=== PATIENT | male | born 2000 | race Caucasian/White ===

== ENCOUNTER 2020-01-13 02:34 | Emergency (ER) | payer SELFPAY ==
[2020-01-13 02:39] VITALS: BP 126/90; PULSE 81; RESP 18; TEMP 36.4; O2SAT 100; BMI 22.9
--- NOTE | 2020-01-13 02:42 | ED_ITS ---
HPI - Extremity Injury (Upper) General: Chief Complaint: Extremity Injury, Upper Stated Complaint: right hand injury Time Seen by Provider: 01/13/20 02:36 Source: patient and EMS Mode of arrival: ambulatory History of Present Illness: HPI narrative: 19-year-old male states that he is working on a golf cart yesterday and sustained an abrasion to his right hand. He states that he has had increasing pain with redness and was not concerned of infection. He states it mainly hurts when he moves it and that if he just at rest it does not hurt. Denies any fevers. Associated symptoms: Denies neck pain Review of Systems Const: Denies: fever, chills, body aches or change in appetite Eyes: Denies: blurry vision or eye discomfort ENMT: Denies: throat pain or dental pain Card: Denies: chest pain Resp: Denies: shortness of breath GI: Denies: abdominal pain, nausea, vomiting or diarrhea : Denies: painful urination Musc: Denies: neck pain or back pain Skin/Breast: Reports: redness Neuro: Denies: headache Psych: Denies: depression Augustin/Lymph: Denies: easy bruising All/Imm: Denies: hives PFSH ED PFSH: Social History Smoking and tobacco status: current every day smoker Physical Exam Const: COMMON NORMALS: no apparent distress, oriented x3 and healthy appearing HENMT: COMMON NORMALS: normocephalic and head/scalp atraumatic HEAD & SCALP: normocephalic and atraumatic Eye: COMMON NORMALS: PERRL and EOMs intact bilaterally PUPIL: Yes PERRL Neck/C-Spine: COMMON NORMALS: full ROM and supple Chest: COMMONS NORMALS: inspection of chest normal and palpation of chest normal Resp: COMMON NORMALS: normal respiratory effort, no retractions, no use of accessory muscles and clear to auscultation bilaterally AUSCULTATION: clear to auscultation bilaterally Cardio: COMMON NORMALS: regular rate, regular rhythm and no murmurs RATE: regular rate RHYTHM: regular rhythm GI: COMMON NORMALS: normal to inspection, nondistended, normoactive bowel sounds, soft to palpation, non-tender and no masses PALPATION: Yes soft Extremity: COMMON NORMALS: normal to inspection and full ROM NARRATIVE EXTREMITY EXAM: Lesion to right knuckle superficial nature with mild cellulitis no abscess formation Neuro: COMMON NORMALS: oriented x3, moves all extremities and no focal motor deficits Psych: COMMON NORMALS: mental status grossly normal, thought process normal and cooperative THOUGHT PROCESS: normal thought process Skin: COMMON NORMALS: no rashes or lesions noted and no wounds GENERAL SKIN EXAM: no rashes or lesions noted Course Vital Signs: Vital signs: Vital Signs Temperature 97.5 F L 01/13/20 02:39 Pulse Rate 81 01/13/20 02:39 Respiratory Rate 18 01/13/20 02:39 Blood Pressure 126/90 01/13/20 02:39 Pulse Oximetry 100 01/13/20 02:39 MDM - Extremity Injury (Upper) MDM Narrative: Medical decision making narrative: Patient presents here with an abrasion to his right hand from working on a go-cart. He has a very mild cellulitis at the wound. No signs of abscess. Patient stable for discharge will place on Bactrim along with Discharge Plan Discharge Patient Disposition: Home, Self-Care Clinical Impression: Abrasion Cellulitis Qualifiers: Site of cellulitis: extremity Site of cellulitis of extremity: upper extremity Laterality: right Qualified Code(s): L03.113 - Cellulitis of right upper limb Prescriptions: New Bactrim DS 800-160 mg tablet 1 tab PO BID 10 Days Qty: 20 RF: 0 EC-Naprosyn 500 mg tablet,delayed release (DR/EC) 500 mg PO BID PRN (Reason: pain) Qty: 20 RF: 0 Discharge Orders: Discharge Order (Routine); Ordered 01/13/20 Ordered By: Genesis Jeffers Discharge Diet: Advance as tolerated Discharge Activity: Resume usual activity Patient Instructions: Cellulitis (ED) Discharge Date/Time: 01/13/20 02:48 Coding Level of Care Code ED Public Information Officer for Romy Packer
[2020-01-13 02:44] VITALS: PULSE 84
[2020-01-13 02:47] VITALS: BP 126/90; PULSE 80; RESP 18; TEMP 36.4; O2SAT 100
== END 2020-01-13 02:48 | disposition home or self-care (01) ==
PROVIDERS: Emergency Provider Emergency Medicine
DX: L03.113 Cellulitis of right upper limb (principal); F17.210 Nicotine dependence, cigarettes, uncomplicated
CPT/HCPCS: 12345; 99281; 99282

== ENCOUNTER 2020-02-13 14:49 | Emergency (ER) | payer SELFPAY ==
[2020-02-13 14:51] VITALS: BP 122/72; PULSE 104; RESP 16; TEMP 36.6; O2SAT 99; BMI 23.7
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
[2020-02-13 16:48] VITALS: BP 111/71; PULSE 60; RESP 18; TEMP 36.7; O2SAT 95
== END 2020-02-13 16:50 | disposition home or self-care (01) ==
PROVIDERS: Emergency Provider Physician Assistant
DX: M25.562 Pain in left knee (principal); V29.9XXA Motorcycle rider (driver) (passenger) injured in unspecified traffic accident, initial encounter; F17.210 Nicotine dependence, cigarettes, uncomplicated
CPT/HCPCS: 12345; 73562; 73590; 99281; 99283

== ENCOUNTER 2020-04-02 05:10 | Emergency (ER) | payer SELFPAY ==
[2020-04-02 05:13] VITALS: BP 117/77; PULSE 99; RESP 18; O2SAT 99; BMI 23.9
[2020-04-02 05:19] VITALS: BP 117/77; PULSE 105; PULSE 96; RESP 19; O2SAT 98
--- NOTE | 2020-04-02 05:21 | XR_ITS ---
WS: [id number] RIGHT FOREARM 2 VIEWS HISTORY: injury COMPARISON: None available. Plate and screw fixation proximal ulna stabilizing a fracture with partial healing. No prior studies to evaluate for progression or change in fracture. There are small ovoid densities measuring 6 mm in the anterior joint space of the elbow. Small joint effusion at the elbow. Soft tissue swelling around the forearm. XR/XR forearm RT 2V [id number] IMPRESSION: 1. Prior plate and screw fixation proximal ulnar fracture. No prior radiograph s for comparison to evaluate for change. There is partial healing. 2. Diffuse soft tissue edema around the forearm. 3. Small avulsion fractures or loose bodies over the anterior elbow joint. The se may be loose bodies within the joint. 4. Small joint effusion.
--- NOTE | 2020-04-02 05:21 | PC.NURSE ---
Sutures removed by Pt. tolerated well.
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
--- NOTE | 2020-04-02 05:43 | PC.NURSE ---
x-ray done at bedside
--- NOTE | 2020-04-02 06:46 | PC.NURSE ---
Pt. declines sling. Reports that he has one at home.
== END 2020-04-02 06:47 | disposition home or self-care (01) ==
PROVIDERS: Emergency Provider Emergency Medicine
DX: L03.119 Cellulitis of unspecified part of limb (principal); F17.210 Nicotine dependence, cigarettes, uncomplicated
CPT/HCPCS: 12345; 29125; 73090; 99281; 99283

== ENCOUNTER 2020-07-10 02:37 | Emergency (ER) | payer SELFPAY ==
[2020-07-10 02:44] VITALS: BP 120/63; PULSE 117; RESP 18; TEMP 36.6; O2SAT 99; BMI 22.9
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
[2020-07-10 02:51] VITALS: BP 125/76; PULSE 89; RESP 16; O2SAT 99
[2020-07-10] MEDS: piperacillin-tazobactam 4.5 GM in sodium chloride 0.9% (plus) 50 ML IV (03:14)
[2020-07-10] MEDS: sodium chloride 0.9% 1,000 ML 999 ML IV (03:14)
[2020-07-10 03:26] LABS: Basophils % 0.3 %; Eosinophils % 0.1 %; Hematocrit 43.1 % (42.0-52.0); Hemoglobin 14.5 g/dL (11.7-16.6); Lymphocytes # 1.7 10^3/uL (1.5-6.5); Lymphocytes % 10.8 %; Mean Corpuscular HGB Conc 33.6 g/dL (30.0-36.0); Mean Corpuscular Hemoglobin 30.3 pg (28.0-34.0); Mean Corpuscular Volume 90.2 fL (80-94); Mean Platelet Volume 9.7 fL (7.4-10.4); Monocytes # 1.3 10^3/uL (0.2-0.9); Monocytes % 7.9 %; Neutrophils # 12.86 10^3/uL (1.8-8.0); Neutrophils % 80.5 %; Nucleated Red Blood Cells % 0 %; Platelet Count 229 10^3/cmm (130-400); Red Blood Count 4.78 10^6/uL (4.1-5.3); Red Cell Distribution Width 12.6 % (12.1-15.1)
[2020-07-10 03:41] LABS: Lactic Sepsis W/Reflex 1.4 mmol/L (0.5-2.2)
[2020-07-10 03:42] LABS: Anion Gap 13.4 (5-19); Blood Urea Nitrogen 11 mg/dL (6-20); Carbon Dioxide 24 mmol/L (22-29); Chloride 101 mmol/L (98-107); Creatinine Clr Calc Pharmacy 134.8704; Glomerular Filtration Rate 107.6 mL/min (90-130); Glucose 143 mg/dL (65-115); Osmolality Calculated 282 mOsm/kg (285-295); Potassium 3.4 mmol/L (3.5-5.1); Sodium 135 mmol/L (136-145)
[2020-07-10] MEDS: amoxicillin-clav 875-125 mg Tablet 1 TAB PO (03:59)
[2020-07-10] MEDS: HYDROcodone-acetaminophen 7.5-325 mg Tablet 1 TAB PO (03:59)
[2020-07-10] MEDS: doxycycline 100 mg Tablet PO (03:59)
[2020-07-10 04:06] VITALS: BP 125/77; PULSE 74; RESP 14; O2SAT 99
== END 2020-07-10 04:08 | disposition home or self-care (01) ==
PROVIDERS: Emergency Provider Nurse Practitioner Family
DX: L03.113 Cellulitis of right upper limb (principal); F17.210 Nicotine dependence, cigarettes, uncomplicated
CPT/HCPCS: 12345; 73130; 80048; 83605; 85025; 87040; 96365; 99283; J2543; J7030

== ENCOUNTER 2021-03-14 15:51 | Emergency (ER) | payer SELFPAY ==
[2021-03-14 16:00] VITALS: BP 124/79; PULSE 71; RESP 18; TEMP 37.1; O2SAT 99; BMI 24.3
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
--- NOTE | 2021-03-14 16:20 | ED_ITS ---
HPI - Trauma General: Chief Complaint: Trauma Stated Complaint: R.Hand Injury/Punched Window Time Seen by Provider: 03/14/21 16:20 History of Present Illness: HPI narrative: Patient is a 21-year-old male comes to the ED with a right hand injury. Patient has a history of metacarpal fracture and right hand fourth and fifth digit that were repaired using plates. Patient says 2 days ago he punched a window. After the injury patient said he had an obvious break just below where his plates are not as right hand. He said there was a bulge in the back of his hand and he pulled on his fourth and fifth digit and pushed down and popped a bone back in place. He now has significant swelling to his right hand. He reports some mild tenderness. Associated symptoms: Denies abdominal pain, back pain, chest pain, chills, fever(s), headache(s), nausea or vomiting Review of Systems Const: Denies: fever(s), chills or fatigue Eyes: Denies: change in vision or eye discomfort ENMT: Denies: throat pain, odynophagia, nasal discharge or nasal congestion Card: Denies: chest pain, palpitations, edema, swelling of feet/ankles, dyspnea on exertion or orthopnea Resp: Denies: dyspnea, productive cough or non-productive cough GI: Denies: abdominal pain, nausea, vomiting, diarrhea, constipation or hematochezia : Denies: flank pain, difficulty urinating, dysuria or hematuria Musc: Reports: extremity pain (right hand ) and extremity swelling (right hand); Denies: neck pain or back pain Skin/Breast: Denies: rash or new lesions Neuro: Denies: headache(s), numbness in extremities or weakness in extremities PFS ED PFSH: Social History Smoking and tobacco status: current every day smoker Physical Exam Const: COMMON NORMALS: no acute distress, patient oriented x3 and alert GENERAL APPEARANCE: cooperative and comfortable HENMT: COMMON NORMALS: normocephalic HEAD & SCALP: normocephalic MOUTH: Normal oral and palatal mucosa present THROAT: posterior oropharynx normal and uvula midline Neck/C-Spine: COMMON NORMALS: supple GENERAL: Yes normal visual inspection Resp: COMMON NORMALS: normal respiratory effort, No retractions, No use of accessory muscles and clear to auscultation bilaterally AUSCULTATION: clear to auscultation bilaterally Cardio: COMMON NORMALS: regular rate, regular rhythm, S1 normal heart sound present, S2 normal heart sound present, No gallops present (Cardio), No clicks present (Cardio), No murmurs present (Cardio) and Peripheral pulses 2+ throughout RATE: regular rate RHYTHM: regular rhythm HEART SOUNDS: S1 normal heart sound present and S2 normal heart sound present PERIPHERAL PULSES: Peripheral pulses 2+ throughout GI: COMMON NORMALS: Normal to inspection, nondistended, normoactive bowel sounds present, Soft to palpation, non-tender and no masses PALPATION: Yes Soft to palpation : COMMON NORMALS: Yes no CVA tenderness BLADDER/KIDNEY EXAM: Yes no CVA tenderness Back/Pelvis: COMMON NORMALS: no CVA tenderness Extremity: RIGHT UPPER EXTREMITY: Yes hand & digits Right hand and digits: Yes inspection (Significant swelling in right hand.), Yes palpation (Mild tenderness over fourth and fifth metacarpals), Yes ROM exam (Limited due to pain) and Yes neurovascular exam (Intact) Neuro: COMMON NORMALS: patient oriented x3 and moves all extremities SENSORIUM/ORIENTATION: Yes alert Skin: GENERAL SKIN EXAM: dry skin Course Vital Signs: Vital signs: Vital Signs Temperature 98.7 F 03/14/21 16:00 Pulse Rate 71 03/14/21 17:59 Respiratory Rate 16 03/14/21 17:59 Blood Pressure 122/71 03/14/21 17:59 Pulse Oximetry 99 03/14/21 17:59 MDM - Trauma MDM Narrative: Medical decision making narrative: Patient is a 21-year-old male comes to the ED with right hand injury 2 days ago. Patient has a past medical history of a boxer fracture on right fourth and fifth digits and currently has plates still in place from previous fracture. Patient says he punched a window and felt pain and said he had an obvious displaced fracture in right hand. He says he then reduced the fracture himself. Here in the ED patient has significant right hand swelling and some tenderness over the fourth and fifth digit metacarpal region. Limited range of motion due to pain. Neurovascular tact. Right hand x-ray did not show any obvious acute fractures and hardware appeared in place. Patient's exam findings and history are suggestive of a boxer's fracture. Patient was put in an ulnar gutter splint and I placed order with case management for patient to be referred to orthopedic. Patient discharged home and told the case loader operator will contact you over the next several days to set up appoint with orthopedic doctor. Return to ED precautions given. Patient understood agree with plan. Imaging Data^: Xray Ortho: Attestation: I personally reviewed and interpreted this imaging study as foll ows: My impression: [address] [id number] ReportSigned Patient: Familia Ron #: [id number]: [id number]#:[id number]/Sex: 21 / MADM Date: 03/14/21Loc: ERRoom/Bed:Attending Dr: Ordering Provider/Ordering MD: Ryan Phipps Date of Service: 03/14/21 Procedure(s): XR hand RT min 3V* [id number] Accession Number(s): [id number] Report Number: [id number] PROCEDURE INFORMATION: Exam: XR Right Hand Exam date and time: 03/14/2021 4:07 PM Age: 21 years old Clinical indication: Injury or trauma; Blunt trauma (contusions or hematomas); Right; Injury details: Punched a window x 2 days; Prior surgery; Surgery type: RT hand; Additional info: Punched window TECHNIQUE: Imaging protocol: XR Right hand. Views: 3 or more views. COMPARISON: No relevant prior studies available. FINDINGS: Bones/joints: Patient has had previous fracture repairs of the 4th and 5th metacarpals. Alignment is anatomic. No acute fracture. No dislocation. Normal bone mineralization. No joint effusion. Joint spaces are maintained. Soft tissues: Marked soft tissue swelling dorsal to the metacarpals. No radiopaque foreign body. XR/XR hand RT min 3V* [id number] IMPRESSION: 1. No acute fracture. Followup imaging recommended in 7-14 days if clinical concern for fracture persists. 2. Marked soft tissue swelling dorsal to the metacarpals. 3. Incidental/nonacute findings are listed in the report. Dictated By:Liss Kwon MDSigned By:Liss Kwon MDSigned Date/Time:03/14/21 1717DD/ 1716 Discharge Plan Discharge Patient Disposition: Home Clinical Impression: Boxer's fracture Qualifiers: Encounter type: initial encounter Fracture type: closed Qualified Code(s): S62.339A - Displaced fracture of neck of unspecified metacarpal bone, initial encounter for closed fracture Condition: Stable Prescriptions: No Action amoxicillin-pot clavulanate 875-125 mg tablet 1 tab PO BID Qty: 14 RF: 0 hydrocodone-acetaminophen 5-325 mg tablet 1 tab PO Q6H PRN (Reason: pain) Qty: 7 RF: 0 Discharge Orders: Discharge ED (Routine); Ordered 03/14/21 Ordered By: Ryan Phipps Discharge Diet: Regular Discharge Activity: Limit activity as instructed Patient Instructions: Boxer Fracture (ED) Activity Restrictions/Additional Instructions: Follow-up with medical provider as directed. Case management should be co ntacting you in the next several days to set up an appointment with orthopedic doctor. Wear your ulnar gutter splint and limit activity with right hand. Take [id number] Tylenol or ibuprofen for pain. Return to the ER or your medical provider if condition worsens. Please read and understand discharge instructions. Thank you for choosing [facility] for your healthcare needs today. Please realize this is an emergency room and that we are providing you with a medical screening exam and this may not be complete and all inclusive of all the testing and or work up that you may need to determine your ailment or severity of your illness. It is very important that you follow up as instructed or that you return to the Emergency Department should you have concerns or if your condition changes or worsens in any way. Coding Level of Care Code ED Agricultural Research Technician for Romy Packer Exam Comprehensive
[2021-03-14 17:59] VITALS: BP 122/71; PULSE 71; RESP 16; O2SAT 99
--- NOTE | 2021-04-15 14:25 | DCPLANNER ---
Patient will need a followup appointment with ortho. manager proposal spoke with Olivia from the ortho clinic. Patients information will be printed and reviewed. Clinic will call patient with appointment information.
--- NOTE | 2021-04-21 11:49 | DCPLANNER ---
immigration manager called the ortho clinic to confirm if a follow up appointment had been scheduled for patient. immigration manager spoke with Sera, case investigator was told that after patients information was reviewed, that Dr. Allison will not see patient at this time due to patient not having a fracture. Patient will need to follow up with primary care.
== END 2021-03-14 18:00 | disposition home or self-care (01) ==
PROVIDERS: Emergency Provider Physician Assistant
DX: S62.339A Displaced fracture of neck of unspecified metacarpal bone, initial encounter for closed fracture (principal); F17.210 Nicotine dependence, cigarettes, uncomplicated; W22.8XXA Striking against or struck by other objects, initial encounter
CPT/HCPCS: 29125; 73130; 99283

== ENCOUNTER 2021-03-26 03:10 | Emergency (ER) | payer SELFPAY ==
[2021-03-26 03:23] VITALS: BP 121/74; PULSE 116; RESP 18; TEMP 36.2; O2SAT 98; BMI 25.8
[2021-03-26] MEDS: sulfamethoxazole-trimeth DS 160-800 mg Tablet 2 TAB PO (03:49)
[2021-03-26] MEDS: dexamethasone 4 mg Tablet 10 MG PO (03:49)
--- NOTE | 2021-03-26 03:53 | PC.NURSE ---
Patient sent home with 2 tablets oxycodone/APAP 5mg/325mg per provider order.
[2021-03-26 03:59] VITALS: BP 119/74; PULSE 104; RESP 14; TEMP 36.2; O2SAT 98
--- NOTE | 2021-03-26 04:50 | ED_ITS ---
HPI - Skin/Abscess/Foreign Bdy General: Chief complaint: Skin/Abscess/Foreign Body Stated complaint: spider bite Time Seen by Provider: 03/26/21 03:27 History of Present Illness: HPI narrative: 21-year-old male with a spider bite to his forearm. Its been there a couple of days. He notes that the area of redness and discomfort has grown. Yesterday, he worked on his mother's car and had an increase in pain at that point. No fever, no vomiting. No real drainage MD complaint: insect bite/sting Onset (ago): day(s) Tetanus up to date: yes Location: RUE Severity: moderate Quality: burning and stabbing Pain Consistency: constant Associated symptoms: Reports vomiting; Deny chills, cough, fever(s) or short of breath Review of Systems 2 Const: Denies: fever(s) or chills Card: Denies: chest pain Resp: Denies: dyspnea GI: Reports: vomiting Skin/Breast: Reports: rash PFSH ED PFSH: Social History Smoking and tobacco status: current every day smoker Physical Exam Const: COMMON NORMALS: no acute distress and alert HENMT: COMMON NORMALS: normocephalic HEAD & SCALP: normocephalic Chest: COMMONS NORMALS: normal inspection of the chest Resp: COMMON NORMALS: normal respiratory effort, No use of accessory muscles and clear to auscultation bilaterally EFFORT & INSPECTION: Yes able to speak in complete sentences AUSCULTATION: clear to auscultation bilaterally Cardio: COMMON NORMALS: regular rate and regular rhythm; negative for No murmurs present (Cardio) RATE: regular rate RHYTHM: regular rhythm GI: COMMON NORMALS: Normal to inspection, nondistended, normoactive bowel sounds present and Soft to palpation PALPATION: Yes Soft to palpation Neuro: SENSORIUM/ORIENTATION: Yes alert Skin: NARRATIVE SKIN EXAM: Exam the right upper extremity reveals a 5 cm area of induration and erythema. There is no fluctuance there is some centralized necrosis that is small. It is warm to the touch and tender no streaking no signs of septic tenosynovitis. Course Vital Signs: Vital signs: Vital Signs Temperature 97.2 F L 03/26/21 03:59 Pulse Rate 104 H 03/26/21 03:59 Respiratory Rate 14 03/26/21 03:59 Blood Pressure 119/74 03/26/21 03:59 Pulse Oximetry 98 03/26/21 03:59 MDM - Skin/Abscess/Foreign Bdy MDM Narrative: Medical decision making narrative: No I&D needed at this time. Oral antibiotics. Return if worsening. Discharge Plan Discharge Patient Disposition: Home Clinical Impression: Abscess of skin or subcutaneous tissue Qualifiers: Site of cutaneous abscess: extremity Site of cutaneous abscess of extremity: upper extremity Laterality: right Qualified Code(s): L02.413 - Cutaneous abscess of right upper limb Condition: Stable Prescriptions: New Bactrim DS 800-160 mg tablet 2 tab PO BID 10 Days Qty: 40 RF: 0 ketorolac 10 mg tablet 10 mg PO TID PRN (Reason: pain) Qty: 10 RF: 0 No Action amoxicillin-pot clavulanate 875-125 mg tablet 1 tab PO BID Qty: 14 RF: 0 hydrocodone-acetaminophen 5-325 mg tablet 1 tab PO Q6H PRN (Reason: pain) Qty: 7 RF: 0 Discharge Orders: Discharge ED (Routine); Ordered 03/26/21 Ordered By: Nickolas Orellana Discharge Diet: Usual diet Discharge Activity: Limit activity as instructed Patient Instructions: Abscess (ED) Activity Restrictions/Additional Instructions: Return for intense pain with flexion or extension of your fifth finger, streaking redness despite 2-3 doses of antibiotics, fever greater than 100 despite 2-3 doses of antibiotics, worsening pain despite treatment, other concerning symptoms. Coding Level of Care Code ED Power Line Installer for Romy Packer
== END 2021-03-26 04:00 | disposition home or self-care (01) ==
PROVIDERS: Emergency Provider Emergency Medicine
DX: L02.413 Cutaneous abscess of right upper limb (principal); F17.210 Nicotine dependence, cigarettes, uncomplicated
CPT/HCPCS: 99283; J8540

== ENCOUNTER 2021-11-01 21:36 | Emergency (ER) | payer SELFPAY ==
[2021-11-01 21:49] VITALS: BP 140/78; PULSE 105; RESP 16; TEMP 37.2; O2SAT 97
--- NOTE | 2021-11-01 22:12 | W.ED.WOUNDLC ---
HPI - Wound/Laceration General: Chief Complaint: Wound/Laceration Stated Complaint: RT leg injury Time Seen by Provider: 11/01/21 21:57 History of Present Illness: 21-year-old male patient comes in today with injury to the right lower leg. Patient was using a hatchet and excellently hit his toe and lower leg. Patient had significant bleeding to the right lower leg. Patient was holding pressure on coming to the ER with significant amount of bleeding noted. Pressure dressing was applied by nurse. Patient's tetanus shot is up-to-date. Patient appears well and is able to bear weight without any difficulty. Review of Systems Skin/Breast: Reports: new lesions (Laceration right lower leg, bleeding) [facility] ED PFSH: Social History Smoking and tobacco status: current every day smoker Physical Exam Const: COMMON NORMALS: alert HENMT: COMMON NORMALS: atraumatic HEAD & SCALP: atraumatic Neck/C-Spine: COMMON NORMALS: full ROM Resp: COMMON NORMALS: normal respiratory effort and clear to auscultation bilaterally AUSCULTATION: clear to auscultation bilaterally Cardio: COMMON NORMALS: regular rate and regular rhythm RATE: regular rate RHYTHM: regular rhythm Extremity: RIGHT LOWER EXTREMITY: Yes lower leg (8mm laceration ) Right lower leg: Yes inspection, Yes palpation and Yes neurovascular exam Neuro: SENSORIUM/ORIENTATION: Yes alert Skin: TRAUMA: laceration (Right lower leg, 8 mm) linear Procedures Laceration Laceration 1: Site: lower extremity (right lower leg) Side (If applicable): right Size (cm): 0.8 Description: linear Depth: simple, single layer Amount of anesthesia used (mL): 1 Pre-repair: wound explored and irrigated extensively Skin layer closed with: nylon Size (cm): 4-0 Number of sutures: 1 Technique: simple, interrupted Course Vital Signs: Vital signs: Vital Signs Temperature 98.9 F 11/01/21 21:49 Pulse Rate 105 H 11/01/21 21:49 Respiratory Rate 16 11/01/21 21:49 Blood Pressure 140/78 11/01/21 21:49 Pulse Oximetry 97 11/01/21 21:49 MDM - Wound/Laceration Medical Decision Making 21-year-old male patient comes in today with injury to the right lower leg. Patient hit it with the edge of his hatchet causing it to be bleeding. On exam there was only 8 mm laceration but has had considerable bleeding prior to controlled with pressure and elevation. Differential diagnosis includes laceration, foreign body, need for prophylaxis tetanus. Patient's tetanus was up-to-date. No foreign body was noted. I went ahead and opted to put a suture into the wound due to the amount of bleeding the patient had I was suspicious for probably a superficial arterial capillary. Bleeding was kept under control and a light pressure dressing was placed on wound closure site. Post procedure care was reviewed with patient and his mother with recommendations for follow-up or return. They reported understanding. Discharge Plan Discharge Patient Disposition: Home Clinical Impression: Laceration of leg Qualifiers: Encounter type: initial encounter Laterality: right Qualified Code(s): S81.811A - Laceration without foreign body, right lower leg, initial encounter Condition: Stable Prescriptions: No Action amoxicillin-pot clavulanate 875-125 mg tablet 1 tab PO BID Qty: 14 0RF hydrocodone-acetaminophen 5-325 mg tablet 1 tab PO Q6H PRN (Reason: pain) Qty: 7 0RF ketorolac 10 mg tablet 10 mg PO TID PRN (Reason: pain) Qty: 10 0RF Discharge Orders: Discharge ED (Routine); Ordered 11/01/21 Ordered By: Ruperto Manuel Discharge Diet: Usual diet Discharge Activity: Increase activity as tolerated Patient Instructions: Laceration (ED) Activity Restrictions/Additional Instructions: Keep wound clean and dry. Have suture removed in 5 to 7 days. Light activity for the next 24 to 48 hours. Follow-up with primary care in 1 week for recheck. Return to the ER for new concerns. Coding Level of Care Code ED Internal Corrosion Specialist for Romy Packer
[2021-11-01 22:31] VITALS: BP 135/71; PULSE 97; RESP 16; TEMP 37.1; O2SAT 98
== END 2021-11-01 22:33 | disposition home or self-care (01) ==
PROVIDERS: Emergency Provider Nurse Practitioner Family
DX: S81.811A Laceration without foreign body, right lower leg, initial encounter (principal); F17.210 Nicotine dependence, cigarettes, uncomplicated; W27.0XXA Contact with workbench tool, initial encounter
CPT/HCPCS: 12001; 99282

== ENCOUNTER 2022-06-27 05:58 | Emergency (ER) | payer SELFPAY ==
[2022-06-27 05:59] VITALS: BP 138/75; PULSE 81; RESP 18; TEMP 37.1; O2SAT 98; BMI 27.9
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
[2022-06-27] MEDS: dexamethasone 10 mg/mL INJ IM (06:40)
[2022-06-27] MEDS: orphenadrine 30 mg/mL Inj 2 mL 60 MG IM (06:40)
[2022-06-27] MEDS: ketorolac 60 mg/2 mL INJ IM (06:40)
== END 2022-06-27 06:51 | disposition home or self-care (01) ==
PROVIDERS: Emergency Provider Family Medicine
DX: S39.012A Strain of muscle, fascia and tendon of lower back, initial encounter (principal); F17.210 Nicotine dependence, cigarettes, uncomplicated; X58.XXXA Exposure to other specified factors, initial encounter
CPT/HCPCS: 96372; 99284; J1100; J1885; J2360

== ENCOUNTER 2022-10-07 14:25 | Emergency (ER) | payer SELFPAY ==
[2022-10-07 14:29] VITALS: BP 116/77; PULSE 60; RESP 19; TEMP 36.8; O2SAT 97; BMI 26.6
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
[2022-10-07 15:02] VITALS: PULSE 75; RESP 16; O2SAT 99
== END 2022-10-07 15:03 | disposition home or self-care (01) ==
PROVIDERS: Emergency Provider Nurse Practitioner Family
DX: L03.114 Cellulitis of left upper limb (principal); S61.452A Open bite of left hand, initial encounter; W54.0XXA Bitten by dog, initial encounter; F17.210 Nicotine dependence, cigarettes, uncomplicated
CPT/HCPCS: 99283

== ENCOUNTER 2024-10-25 22:13 | Emergency (ER) | payer SELFPAY ==
[2024-10-25 22:19] VITALS: BP 129/80; PULSE 113; RESP 16; TEMP 36.7; O2SAT 98
== END 2024-10-25 23:29 | disposition left against medical advice (07) ==
PROVIDERS: Emergency Provider Physician Assistant
DX: Z53.21 Procedure and treatment not carried out due to patient leaving prior to being seen by health care provider (principal)

== ENCOUNTER 2024-12-10 20:09 | Emergency (ER) | payer OTHER, SELFPAY ==
[2024-12-10 20:10] VITALS: BP 148/91; PULSE 80; RESP 18; TEMP 36.1; O2SAT 85; BMI 27.8
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
[2024-12-10 20:55] VITALS: BP 141/84; PULSE 90; O2SAT 91
[2024-12-10 21:18] VITALS: BP 126/67; PULSE 98; O2SAT 94
[2024-12-10 21:30] VITALS: PULSE 96; O2SAT 95
[2024-12-10] MEDS: ondansetron 2 mg/ML SDV 2 mL 4 MG IVP (21:49)
[2024-12-10] MEDS: HYDROmorphone 0.5 MG/0.5 ML INJ 1 MG IVP (21:50)
[2024-12-10] MEDS: HYDROcodone-acetaminophen 5-325 mg Tablet 1 TAB PO (22:10)
[2024-12-10 22:25] VITALS: BP 145/85; PULSE 93; O2SAT 96
--- NOTE | 2024-12-12 14:02 | DCPLANNER ---
Aunt (Annette) called because she reached out to [facility]NT for follow up appt. They told her that they had no records of the referral and were not able to see the CTs. I reached out to [facility], got the same confusion. I called Nicky at the transfer center and she reached out to Dr. Lomeli and his nurse directly. They then reached out to me with the appt. I called Annette and gave her appt time, address location and a phone number. Due to appt being 12/17 @ 930 and the limited number of pain medication sent on 12/10 they requested about more pain medicine. Dr. Jeffers wrote a paper Rx to make it through to the appointment. norco 5mg/325 mg 1 per day PRN for pain Q 6hrs. *15*
== END 2024-12-10 22:28 | disposition home or self-care (01) ==
PROVIDERS: Emergency Provider Emergency Medicine
DX: S02.832A Fracture of medial orbital wall, left side, initial encounter for closed fracture (principal); S02.32XA Fracture of orbital floor, left side, initial encounter for closed fracture; S01.112A Laceration without foreign body of left eyelid and periocular area, initial encounter; Y04.2XXA Assault by strike against or bumped into by another person, initial encounter; Z72.0 Tobacco use
CPT/HCPCS: 12011; 70450; 70486; 71045; 72125; 73130; 96374; 96375; 99285; J1171; J2405

== ENCOUNTER 2024-12-23 14:54 | Emergency (ER) | payer SELFPAY ==
[2024-12-23 15:02] VITALS: BP 124/71; PULSE 99; RESP 20; TEMP 36.5; O2SAT 99; BMI 27.8
--- NOTE | 2024-12-23 15:02 | ECG_ITS ---
[facility] Date: 2024-12-23 Pat Name: Familia Ron Department: Room: Gender: Male Workforce Planner: : [id number] Requested By: Genesis Jeffers Order Number: [id number] Loree MD: Lamine Eduardo M.D. Measurements Intervals [place] Rate: 94 P: 48 SC: 150 QRS: 19 QRSD: 95 T: 56 QT: 310 QTc: 388 Interpretive Statements SINUS RHYTHM POSSIBLE RIGHT VENTRICULAR CONDUCTION DELAY [RSR (QR) IN V1/V2] No previous ECG available for comparison Electronically Signed On 12-24-2024 12:33:10 CDT by Lamine Eduardo M.D. [email or web address]
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
[2024-12-23 16:47] VITALS: BP 137/74; PULSE 104; O2SAT 99
== END 2024-12-23 16:49 | disposition home or self-care (01) ==
PROVIDERS: Emergency Provider Emergency Medicine
DX: R07.89 Other chest pain (principal); Z72.0 Tobacco use
CPT/HCPCS: 71101; 93005; 99284